=== PATIENT | female | born 1945 | race Caucasian/White ===

== ENCOUNTER 2017-05-31 13:13 | Emergency (ER) | payer MEDICARE, OTHER ==
[~2017-05-31 13:13] MED LIST: BLOOD PRESURE; DIOV40TA PO; HIGH CHOLESTEROL; LOVA20TA PO; SERT-132 PO; [UNRECOGNIZED DRUG - OTHER]
[2017-05-31 13:17] VITALS: BP 147/67; PULSE 103; RESP 20; TEMP 98.8; O2SAT 98
[2017-05-31] MEDS ORDERED: LOVA20TA PO (13:29)
[2017-05-31] MEDS ORDERED: SERT-129 PO (13:29)
[2017-05-31] MEDS ORDERED: LISI-519 PO (13:29)
--- NOTE | 2017-05-31 13:43 | PD ---
HPI Chief Complaint: General Weakness Time Seen by Provider: 13:29 Travel History International Travel<30 days: No Contact w/Intl Traveler<30days: No Traveled to known affect area: No History of Present Illness HPI This 71-year-old female says she feels like her equilibrium is a little bit off. She says when she gets up she feels a little bit unsteady. She has not noted weakness of her arms or legs. She says she was sick the last few weeks with a head cold for which she took [id number] medication. 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 She is not aware of any fever or chills. PFSH Past Medical History Depression: Yes Cancer: Yes (LYMPHOMA 18YEARS) High Cholesterol: Yes Diabetes: No Diminished Hearing: No Glaucoma: No Hepatitis: No Hiatal Hernia: No Hypertension: Yes Immunizations Current: No Radiation Therapy: Yes (brain tumor) Thyroid Disease: No Influenza Vaccination: Yes ?: Not Menopausal: Yes Past Surgical History Abdominal Surgery: Yes (SPLEENECTOMY) Cardiac Surgery: No Ear Surgery: No Endocrine Surgery: No Eye Surgery: No Genitourinary Surgery: No Gynecologic Surgery: No Oral Surgery: No Pacemaker: No Thoracic Surgery: No Other Surgery: Yes (SPLEENECTOMY 18YEARS AGO) Social History Alcohol Use: No Tobacco Use: No Substance Use: No Allergies-Medications (Allergen,Severity, Reaction): Coded Allergies: No Known Allergies (Verified Adverse Reaction, Unknown, 05/31/17) Reported Meds & Prescriptions Reported Meds & Active Scripts Active Reported Lisinopril 5 Mg Tab 5 Mg PO DAILY Sertraline (Sertraline HCl) 100 Mg Tab 150 Mg PO DAILY Lovastatin 20 Mg Tab 20 Mg PO HS Review of Systems General / Constitutional: No: Fever, Chills Eyes: No: Diploplia HENT: Positive: Lightheadedness, No: Headaches, Vertigo Cardiovascular: No: Chest Pain or Discomfort, Palpitations Respiratory: No: Cough, Shortness of Breath Gastrointestinal: No: Vomiting, Diarrhea Genitourinary: No: Urgency, Frequency Musculoskeletal: No: Myalgias Skin: No Rash Neurologic: Positive: Weakness, No: Dizziness Endocrine: No: Heat Intolerance Physical Exam Narrative GENERAL: Well-developed female SKIN: Focused skin assessment warm/dry. HEAD: Atraumatic. Normocephalic. EYES: Pupils equal and round. No scleral icterus. No injection or drainage. ENT: No nasal bleeding or discharge. Mucous membranes pink and moist. NECK: Trachea midline. No JVD. CARDIOVASCULAR: Regular rate and rhythm. No murmur appreciated. RESPIRATORY: No accessory muscle use. Clear to auscultation. Breath sounds equal bilaterally. GASTROINTESTINAL: Abdomen soft, non-tender, nondistended. Hepatic and splenic margins not palpable. MUSCULOSKELETAL: No obvious deformities. No clubbing. No cyanosis. No edema. NEUROLOGICAL: Awake and alert. No obvious cranial nerve deficits. Motor grossly within normal limits. Normal speech. PSYCHIATRIC: Appropriate mood and affect; insight and judgment normal. Data Data Last Documented VS Vital Signs Date Time Temp Pulse Resp B/P (MAP) Pulse Ox O2 Delivery O2 Flow Rate FiO2 05/31/17 14:04 71 173/82 (112) 85 169/88 (115) 101 148/74 (98) 05/31/17 13:17 98.8 20 98 Orders Orders Electrocardiogram (05/31/17 13:39) Complete Blood Count With Diff (05/31/17 13:39) Basic Metabolic Panel (Bmp) (05/31/17 13:39) Ct Brain W/O Iv Contrast(Rout) (05/31/17 13:39) Orthostatic Vital Signs (05/31/17 13:39) Lisinopril (Prinivil) (05/31/17 13:45) Lorazepam Inj (Ativan Inj) (05/31/17 13:45) Labs Laboratory Tests Test 05/31/17 13:45 White Blood Count 6.6 TH/MM3 Red Blood Count 4.69 MIL/MM3 Hemoglobin 13.8 GM/DL Hematocrit 41.7 % Mean Corpuscular Volume 89.0 FL Mean Corpuscular Hemoglobin 29.4 PG Mean Corpuscular Hemoglobin Concent 33.1 % Red Cell Distribution Width 13.1 % Platelet Count 243 TH/MM3 Mean Platelet Volume 10.2 FL Neutrophils (%) (Auto) 59.8 % Lymphocytes (%) (Auto) 31.2 % Monocytes (%) (Auto) 7.1 % Eosinophils (%) (Auto) 1.1 % Basophils (%) (Auto) 0.8 % Neutrophils # (Auto) 3.9 TH/MM3 Lymphocytes # (Auto) 2.0 TH/MM3 Monocytes # (Auto) 0.5 TH/MM3 Eosinophils # (Auto) 0.1 TH/MM3 Basophils # (Auto) 0.1 TH/MM3 CBC Comment DIFF FINAL Differential Comment Blood Urea Nitrogen 14 MG/DL Creatinine 0.88 MG/DL Random Glucose 137 MG/DL Calcium Level 9.0 MG/DL Sodium Level 140 MEQ/L Potassium Level 3.9 MEQ/L Chloride Level 106 MEQ/L Carbon Dioxide Level 26.7 MEQ/L Anion Gap 7 MEQ/L Estimat Glomerular Filtration Rate 64 ML/MIN MDM Medical Decision Making Medical Screen Exam Complete: Yes Emergency Medical Condition: Yes Medical Record Reviewed: Yes Differential Diagnosis Differential includes vertigo, dehydration Patient has complained of nonspecific lightheadedness. Orthostatic vital signs are normal. Her blood pressure slightly elevated. She did have a recent upper respiratory infection which may have "some mild vertigo. Lab work is unremarkable. A CT of the brain is negative. She'll be released Narrative Course She is stable for discharge. Diagnosis Primary Impression: Lightheadedness Additional Instructions: Drink plenty of fluids, take blood pressure medicine. Follow-up with your own medical doctor Disposition: 01 DISCHARGE HOME Condition: Stable Real Spivey MD May 31, 2017 13:43
[2017-05-31] MEDS ORDERED: LORazepam 2 MG/ML VIAL IV PUSH ONE (13:45)
[2017-05-31] MEDS ORDERED: LISINOPRIL 5 MG TAB PO ONE (13:45)
[2017-05-31 13:53] LABS: AUTOMATED NEUTROPHIL # 3.9 TH/MM3 (1.8-7.7); BASOPHIL # 0.1 TH/MM3 (0-0.2); BASOPHIL % 0.8 % (0.0-2.0); EOSINOPHIL # 0.1 TH/MM3 (0-0.4); EOSINOPHIL % 1.1 % (0.0-4.0); HEMATOCRIT 41.7 % (35.0-46.0); HEMO FLAGS DIFF FINAL; LYMPH % 31.2 % (9.0-44.0); MEAN CORPUSCULAR HEMOGLOBIN 29.4 PG (27.0-34.0); MEAN CORPUSCULAR HGB CONC 33.1 % (32.0-36.0); MONO % 7.1 % (0.0-8.0); NEUT % 59.8 % (16.0-70.0); PLATELET COUNT 243 TH/MM3 (150-450); RED BLOOD COUNT 4.69 MIL/MM3 (4.00-5.30); RED CELL DISTRIBUTION WIDTH 13.1 % (11.6-17.2); WHITE BLOOD COUNT 6.6 TH/MM3 (4.0-11.0)
[2017-05-31 14:01] LABS: POTASSIUM 3.9 MEQ/L (3.5-5.1)
[2017-05-31 14:03] LABS: BICARBONATE 26.7 MEQ/L (21.0-32.0)
[2017-05-31 14:04] VITALS: BP_SYST 148; BP_SYST 169; BP_SYST 173; BP_DIAS 74; BP_DIAS 82; BP_DIAS 88
--- NOTE | 2017-05-31 14:44 | RADRPT ---
EXAM DATE/TIME: 05/31/2017 14:17 [facility] COMPARISON: No previous studies available for comparison. INDICATIONS : Tingling and dizziness. RADIATION DOSE: 52.93 CTDIvol (mGy) MEDICAL HISTORY : Hypercholesterolemia. Hypertension. Lymphoma.Brain tumor, radiation therapy. SURGICAL HISTORY : Splenectomy. ENCOUNTER: Initial ACUITY: 3 days PAIN SCALE: 0/10 LOCATION: cranial TECHNIQUE: Multiple contiguous axial images were obtained of the head. Using automated exposure control and adj ustment of the mA and/or kV according to patient size, radiation dose was kept as low as reasonably a chievable to obtain optimal diagnostic quality images. DICOM format image data is available electro nically for review and comparison. FINDINGS: CEREBRUM: The ventricles are normal for age. No evidence of midline shift, mass lesion, hemorrhage or acute in farction. No extra-axial fluid collections are seen. POSTERIOR FOSSA: The cerebellum and brainstem are intact. The 4th ventricle is midline. The cerebellopontine angle i s unremarkable. EXTRACRANIAL: The visualized portion of the orbits is intact. SKULL: The calvaria is intact. No evidence of skull fracture. CONCLUSION: 1. No acute intracranial abnormality. Chidi Chavez MD on May 31, 2017 at 14:40 Board Certified Radiologist. This report was verified electronically.
--- NOTE | 2017-06-01 15:57 | EKG ---
Date Performed: 05/31/2017 Time Performed: 13:51:22 PTAGE: 71 years EKG: Sinus rhythm NORMAL ECG PREVIOUS TRACING : 12/06/2000 14.09 DOCTOR: Rodolfo Lei Interpretating Date/Time 06/01/2017 15:55:53
== END 2017-05-31 15:09 | disposition home or self-care (01) ==
LOC: PHED 13:13
DX: R42 Dizziness and giddiness (principal)
CPT/HCPCS: 70450; 80048; 85025; 93005; 99285